=== PATIENT | female | born 1950 | race Caucasian/White ===

== ENCOUNTER 2024-01-28 11:48 | Outpatient (AMB) | payer MEDICARE, SELFPAY ==
--- NOTE | 2024-01-28 12:04 | HO.NEPHOV ---
HPI HPI Comments History of Present Illness Details I had the privilege of seeing Kaycee for history of hyperkalemia. She recently had NSTEMI while on Plavix and underwent angiography as well as PCI. Her serum potassium has been high and his serum creatinine has gone over 0.3 from baseline She has history of mixed connective tissue disease for some time. Her son Gerson Vásquez his a hemato oncologist in [place]. She sees Dr Armendariz for her pulmonary issues. She has fluctuant blood sugars, but better. She used to follow-up with Dr. Medrano. She denies retinopathy. She gets occasional edema. She does not take Bactrim as UTI prophylaxis now. Recently she had UTI and was put on ciprofloxacin. She had taken EMILIA-inhibitor in the past. She has history of stress incontinence. She feels tired after recent medication changes [facility] Medical History (Updated 01/28/24 @ 12:51 by Thierry Hanson MD) Type 2 diabetes mellitus Asthma Thrombocytopenia Depressive disorder Anxiety Hyperlipidemia Essential (primary) hypertension Acute kidney injury Surgical History H/O toe surgery H/O neck surgery Family History Sister Breast cancer Brother Heart disease Social History Alcohol intake: never Patient Tobacco Use Status: Never used Tobacco Vital Signs 01/28/24 12:06 Height 5 ft 6 in Weight 286 lb BMI 46.2 BP 114/68 Blood Pressure Location Rt brachial Position Sitting Physical Exam Vital Signs: Last Vital Signs BP 114/68 01/28/24 12:06 BMI result Body Mass Index 46.2 Const General: comfortable and no acute distress Orientation/consciousness: patient oriented x3 HEENT Head: Yes normocephalic Mouth: Normal oral and palatal mucosa present Eyes EOM: EOMs intact bilaterally Neck Neck: Yes supple Resp Auscultation: clear to auscultation bilaterally Cardio Jugular venous distension: no JVD Rate: regular rate GI Palpation (GI): Soft to palpation Auscultation: normal bowel sounds General: Yes no CVA tenderness Back/Spine/Pelvis Back: no CVA tenderness Skin General skin exam: no rashes or lesions noted Neuro General: patient oriented x3 Assessment & Plan Assessment & Plan (1) Hyperkalemia: Code(s): E87.5 - Hyperkalemia (2) Acute kidney injury: Code(s): N17.9 - Acute kidney failure, unspecified Plan Kaycee most likely had mild JENN with hyperkalemia due to recent coronary event which might have led to reduced distal renal tubular perfusion. Her recent serum potassium is 5.5 and her creatinine has gone up by 0.3. She is at risk for renal tubular acidosis type 4 due to her diabetes. She should not take nonsteroidal anti-inflammatories. That put her at risk for hyperkalemia. She used to take Bactrim in the past(does not take it anymore) which also causes hyperkalemia. She needs to keep up with good blood sugar control. She is not on any EMILIA inhibitor, ARB or spironolactone. She maintains good hydration. She needs to avoid nonsteroidals if possible. I ordered electrolytes and renal functions today. She was encouraged to keep a low-potassium diet. If her potassium remains on the higher side I will initiate her on potassium binding agent. All these have been discussed in detail. She is going to be followed up in 3 months in the office. I answered all questions and follow-up appointment was given Orders: Orders Creatinine Today E87.5 - Hyperkalemia, N17.9 - Acute kidney failure, unspecified Blood Urea Nitrogen Today E87.5 - Hyperkalemia, N17.9 - Acute kidney failure, unspecified Electrolytes Today E87.5 - Hyperkalemia, N17.9 - Acute kidney failure, unspecified Creatinine 3 Months E87.5 - Hyperkalemia, N17.9 - Acute kidney failure, unspecified Blood Urea Nitrogen 3 Months E87.5 - Hyperkalemia, N17.9 - Acute kidney failure, unspecified Electrolytes 3 Months E87.5 - Hyperkalemia, N17.9 - Acute kidney failure, unspecified Coding Level of Care Code Est Pt Level 4 (52684) Diagnoses Hyperkalemia E87.5 Acute kidney injury N17.9 Results Reviewed Nephrology Results: No Data to Display
[2024-01-28 12:06] VITALS: BP 114/68; BMI 46.2
== END 2024-01-28 13:00 | disposition home or self-care (01) ==
PROVIDERS: PCP Internal Medicine; Referring Provider Internal Medicine; Visit Provider Internal Medicine Nephrology
DX: E87.5 Hyperkalemia (principal); N17.9 Acute kidney failure, unspecified
CPT/HCPCS: 99214

== ENCOUNTER 2024-01-28 13:00 | Outpatient (REF) | payer MEDICARE, SELFPAY ==
[2024-01-28 17:06] LABS: Anion Gap 8 (12-20); Blood Urea Nitrogen 19 mg/dL (9-16); Carbon Dioxide 24 mmol/L (22-29); Chloride 109 mmol/L (96-108); Estimated Glomerular Filt Rate > 60; Potassium 5.2 mmol/L (3.3-5.1); Sodium 136 mmol/L (135-145)
== END 2024-01-28 13:01 | disposition home or self-care (01) ==
LOC: HO.HKASLDS 13:00
PROVIDERS: Visit Provider Internal Medicine Nephrology
DX: E87.5 Hyperkalemia (principal); N17.9 Acute kidney failure, unspecified
CPT/HCPCS: 36415; 80051; 82565; 84520; 99212

== ENCOUNTER 2024-05-04 11:57 | Outpatient (REF) | payer MEDICARE, SELFPAY ==
[2024-05-04 18:18] LABS: Anion Gap 13 (12-20); Blood Urea Nitrogen 17 mg/dL (9-16); Carbon Dioxide 24 mmol/L (22-29); Chloride 108 mmol/L (96-108); Estimated Glomerular Filt Rate > 60; Potassium 4.6 mmol/L (3.3-5.1); Sodium 140 mmol/L (135-145)
== END 2024-05-04 11:58 | disposition home or self-care (01) ==
LOC: HO.HKASLDS 11:57
PROVIDERS: Visit Provider Internal Medicine Nephrology
DX: N17.9 Acute kidney failure, unspecified (principal); E87.5 Hyperkalemia
CPT/HCPCS: 36415; 80051; 82565; 84520

== ENCOUNTER 2024-05-10 12:14 | Outpatient (AMB) | payer MEDICARE, SELFPAY ==
--- NOTE | 2024-05-10 12:17 | HO.NEPHOV_ITS ---
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 She recently had NSTEMI while on Plavix and underwent angiography as well as PCI. Her serum potassium has been high and his serum creatinine has gone over 0.3 from baseline She has history of mixed connective tissue disease for some time. Her son Gerson Vásquez his a hemato oncologist in [place]. She sees Dr Armendariz for her pulmonary issues. She has fluctuant blood sugars, but better. She used to follow-up with Dr. Medrano. She denies retinopathy. She gets occasional edema. She does not take Bactrim as UTI prophylaxis now. She is having SOB and is being investigated by data processor. She had taken EMILIA-inhibitor in the past. She has history of stress incontinence. She feels tired after recent medication changes [facility] Medical History (Updated 01/28/24 @ 12:51 by Thierry Hanson MD) Type 2 diabetes mellitus Asthma Thrombocytopenia Depressive disorder Anxiety Hyperlipidemia Essential (primary) hypertension Acute kidney injury Surgical History H/O toe surgery H/O neck surgery Family History Sister Breast cancer Brother Heart disease Social History Alcohol intake: never Patient Tobacco Use Status: Never used Tobacco Results Reviewed Nephrology Results: Sodium 140 mmol/L (135-145) 05/04/24 Potassium 4.6 mmol/L (3.3-5.1) 05/04/24 Chloride 108 mmol/L (96-108) 05/04/24 Carbon Dioxide 24 mmol/L (22-29) 05/04/24 BUN 17 mg/dL (9-16) H 05/04/24 Creatinine 0.84 mg/dL (0.5-1.4) 05/04/24 Assessment & Plan Assessment & Plan (1) Hyperkalemia: Code(s): E87.5 - Hyperkalemia Category: Medical Plan Kaycee most likely had mild JENN with hyperkalemia due to recent coronary event which might have led to reduced distal renal tubular perfusion which has resolved. Her recent serum potassium is normal. She is at risk for renal tubular acidosis type 4 due to her diabetes. She should not take nonsteroidal anti-inflammatories. That put her at risk for hyperkalemia. She used to take Bactrim in the past(does not take it anymore) which also causes hyperkalemia. She needs to keep up with good blood sugar control. She maintains good hydration. She needs to avoid nonsteroidals if possible. She was encouraged to keep a low-potassium diet. All these have been discussed in detail. She is going to be followed up in 6 months in the office. I answered all questions and follow-up appointment was given Orders: Orders Blood Urea Nitrogen Today E87.5 - Hyperkalemia Creatinine Today E87.5 - Hyperkalemia Electrolytes Today E87.5 - Hyperkalemia Coding Level of Care Code Est Pt Level 4 (45963) Diagnoses Hyperkalemia E87.5
[2024-05-10 12:18] VITALS: BP 110/76
== END 2024-05-10 13:02 | disposition home or self-care (01) ==
PROVIDERS: PCP Internal Medicine; Visit Provider Internal Medicine Nephrology
DX: E87.5 Hyperkalemia (principal)
CPT/HCPCS: 99214

== ENCOUNTER → 2024-05-10 12:14 | Outpatient (BNVA) | payer MEDICARE, SELFPAY | PROVIDERS: PCP Internal Medicine; Visit Provider Internal Medicine Nephrology | DX: E87.5 Hyperkalemia (principal) | CPT/HCPCS: 99212 ==